=== PATIENT | male | born 1965 | race Caucasian/White ===

== ENCOUNTER 2019-06-23 12:19 | Emergency (ER) | payer OTHER, SELFPAY ==
--- NOTE | 2019-06-23 12:25 | ED.WOUNDLAC ---
HPI - Wound/Laceration General Chief Complaint: Wound/Laceration Stated Complaint: FACIAL LAC Time Seen by Provider: 06/23/19 12:26 Source: patient and RN notes reviewed History of Present Illness HPI narrative: Patient is a 53-year-old male that presents the urgent care with complaints of a laceration to the left side of the face. Patient states that happened just prior to arrival while at work. Patient states that a metal crowbar hit him on the left side of the face, under the eye. Patient denies any loss of consciousness or other injuries. Patient denies any vision change. Patient is unsure of when he had his last tetanus. No other acute complaints. No acute distress noted. Patient read the plan of care. Related Data Home Medications Medication Instructions Recorded Confirmed cetirizine [Zyrtec] 10 mg PO DAILY 06/23/19 06/23/19 clomiphene citrate 50 mg PO 06/23/19 Allergies Allergy/AdvReac Type Severity Reaction Status Date / Time Penicillins Allergy Unknown Rash Verified 12/17/17 19:34 Review of Systems Review of Systems: Narrative: CONSTITUTIONAL: Denies fever, chills, or sweats. EYES: Denies visual changes, redness, or discharge. ENT: Denies rhinorrhea, congestion, sore throat, or otalgia. CARDIOVASCULAR: Denies chest pain, palpitations, or edema. RESPIRATORY: Denies cough or dyspnea. GASTROINTESTINAL: Denies abdominal pain, nausea, vomiting, or diarrhea. GENITOURINARY: Denies dysuria or hematuria. SKIN: Reports of a puncture laceration wound to the left side of the face MUSCULOSKELETAL: Denies back pain, joint pain, or myalgia. NEUROLOGIC: Denies headache, numbness, or weakness. All other systems reviewed are negative, except as documented in HPI. PMFSH Social History Social History Gender identity (if verbalized by the patient): Male Comments At the time of my signature, I reviewed and agree with the nursing past medical, surgical, social, and family history. There is no relevant family history pertinent to the patient complaint. Exam Narrative: Exam Narrative: GENERAL: This is a well-nourished, well-developed patient, in no apparent distress. HEAD: normocephalic, atraumatic. EYES: PERRL. Sclera clear/white. Vision is grossly intact. EARS: External ears normal NOSE: External nose normal with no obvious nasal discharge THROAT: Mucous membranes moist NECK: Neck supple CARDIOVASCULAR: Regular rate and rhythm without murmurs, gallops, or rubs. RESPIRATORY: Clear to auscultation. Breath sounds equal bilaterally. No wheezes, rales, or rhonchi. SKIN: Approximately 1 cm irregular laceration to the left side of the face, below the eye. Warm, intact with no suspicious lesions or rash, good texture and turgor. NEURO: awake, alert, and oriented to person, place and time. There were no obvious focal neurologic abnormalities. EXTREMITIES: No clubbing, cyanosis, or edema. Course Vital Signs Vital signs: Vital Signs Temperature 98.9 F 06/23/19 12:36 Pulse Rate 74 06/23/19 12:36 Respiratory Rate 16 06/23/19 12:36 Blood Pressure 146/90 H 06/23/19 12:36 Pulse Oximetry 99 06/23/19 12:36 Temperature 98.9 F 06/23/19 12:36 Pulse Rate 74 06/23/19 12:36 Respiratory Rate 16 06/23/19 12:36 Blood Pressure 146/90 H 06/23/19 12:36 Pulse Oximetry 99 06/23/19 12:36 Reviewed?patient is informed that they may have pre-hypertension or hypertension based on a blood pressure reading in the department. I recommend the patient call the primary care provider listed on their discharge instructions or a physician of their choice this week to arrange follow-up for further evaluation of possible pre-hypertension or hypertension. Procedures Laceration Laceration 1: Site: face Side (If applicable): left Size (cm): 1 Description: linear and irregular Depth: simple, single layer Local Anesthetic: none Pre-repair: irrigated ====== Skin Level ======
[2019-06-23 12:36] VITALS: BP 146/90; PULSE 74; RESP 16; TEMP 37.2; O2SAT 99
[2019-06-23] MEDS: TETANUS,DIPHTHERIA,AC PERTUSSIS ADULT 0.5 ML (ADACEL) IM (12:55)
== END 2019-06-23 13:09 | disposition home or self-care (01) ==
PROVIDERS: Emergency Provider Nurse Practitioner Family; PCP Family Medicine
DX: S01.81XA Laceration without foreign body of other part of head, initial encounter (principal); W22.8XXA Striking against or struck by other objects, initial encounter; Y99.0 Civilian activity done for income or pay; Z23 Encounter for immunization
CPT/HCPCS: 12011; 90471; 90715; 99212; G0463

== ENCOUNTER 2021-10-29 03:24 | Day surgery (SDC) | payer OTHER, SELFPAY ==
[2021-10-09 11:46] VITALS: BMI 36.9
--- NOTE | 2021-10-29 08:29 | P.PNAN_ITS ---
Anes - Initial Pre Proc Eval Procedure: Operation Date: 10/29/21 10:00 Proposed Procedures p Colonoscopy - Jovon Cronin MD Date/Time: 10/29/21 08:29 Surgeon: Jovon Cronin MD Pre Op Diagnosis: positive cologuard Patient Data Age: 56 Gender: M Height: 1.85 m Weight: 127 kg Allergies Allergy/AdvReac Type Severity Reaction Status Date / Time Penicillins Allergy Unknown Rash Verified 10/29/21 08:42 Home Medications Medication Instructions Recorded Confirmed Type cetirizine 10 mg capsule (Zyrtec) 10 mg PO DAILY 06/23/19 10/29/21 History clomiphene citrate 50 mg tablet 50 mg PO EVERY OTHER DAY 06/23/19 10/29/21 History Patient hx anesthesia problems: none Family hx anesthesia problems: none Results Review: All pre-operative results and documents have been reviewed as part of the pre- operative evaluation. [facility] Past Medical History Medical History (Updated 10/29/21 @ 09:09 by Jovon Cronin MD) Asthma Hyperlipidemia Osteoarthritis Positive colorectal cancer screening using Cologuard test Social History Social History Smoking status: Never smoker Substance use type: does not use Living arrangements: alone Gender identity (if verbalized by the patient): Male Spiritual care concerns: No Anes - Eval Final PreProcedure Day of Procedure 10/29/21 08:29 Patient weight: obese Heart: regular rate and rhythm Lungs: clear to auscultation Airway: Mallampati scale class II Neurological: alert and oriented Last oral intake: >/= 8 hours ASA classification: III Emergent: no Anesthetic plan: proceed Anesthesia type and monitoring: general GIVS and standard monitoring Results Review: All pre-operative results and documents have been reviewed as part of the pre- operative evaluation. Informed Consent: The patient's anesthetic plan and its attendant risks and benefits were discussed with the patient/family/POA. Questions were solicited and answers provided to the satisfaction of the patient/family/POA.
[2021-10-29 08:43] VITALS: BP 145/98; PULSE 77; RESP 20; TEMP 36.4; O2SAT 97
[2021-10-29] MEDS: LACTATED RINGERS 1,000 ML 150 ML IV CONT (08:45)
--- NOTE | 2021-10-29 09:08 | PM.HPGS ---
History of Present Illness History of Present Illness Consent: Risks, benefits, and alternatives have been discussed and questions answered. Patient agrees to proceed with procedure. Chief complaint: positive cologuard Narrative: Colby Michaels Jr. is a 56 year old male here for first colonoscopy, had + cologuard Review of Systems Constitutional: Constitutional: Denies headache(s) and Denies weakness Eyes: Eyes: Denies blurry vision ENT: Reports Normal hearing present, Denies headache(s) and Denies neck pain Cardiovascular: Cardiovascular: Denies chest pain and Denies dyspnea Respiratory: Respiratory: Denies dyspnea Gastrointestinal: Gastrointestinal: Reports no additional gastrointestinal complaints Genitourinary: Genitourinary: Denies dysuria Musculoskeletal: Musculoskeletal: Denies neck pain Integumentary/Breasts: Skin/Breast: Denies dry skin Neurologic: Reports Normal hearing present, Denies headache(s) and Denies weakness Psychiatric: Psychiatric: Denies anxiety Endocrine: Endocrine: Denies change in body appearance Hematologic/Lymphatic: Hematologic/Lymphatic: Denies easy bleeding Allergic/Immunologic: Allergic/Immunologic: Denies urticaria PMFSH Past Medical History Medical History (Updated 10/29/21 @ 09:09 by Jovon Cronin MD) Asthma Hyperlipidemia Osteoarthritis Positive colorectal cancer screening using Cologuard test Social History Social History Smoking status: Never smoker Substance use type: does not use Living arrangements: alone Gender identity (if verbalized by the patient): Male Spiritual care concerns: No Meds Home Medications and Allergies Home Medications Medication Instructions Recorded Confirmed Type cetirizine 10 mg capsule (Zyrtec) 10 mg PO DAILY 06/23/19 10/29/21 History clomiphene citrate 50 mg tablet 50 mg PO EVERY OTHER DAY 06/23/19 10/29/21 History Allergies Allergy/AdvReac Type Severity Reaction Status Date / Time Penicillins Allergy Unknown Rash Verified 10/29/21 08:42 Vital Signs Vital Signs - 24 hr 10/29/21 08:43 Temperature 97.5 F L Pulse Rate 77 Respiratory Rate 20 Blood Pressure 145/98 H Pulse Oximetry 97 Oxygen Delivery Room Air Exam Const: General: comfortable and no acute distress HENMT: General nose exam: Normal nares present Eyes: General: appearance normal, both eyes and all related structures Neck: Neck: no JVD Resp: Auscultation: clear to auscultation bilaterally Cardio: Rate: regular rate Rhythm: regular rhythm GI: Inspection: non-distended GI Palp: Yes Soft to palpation Skin: General skin exam: normal color Neuro: General: gait normal Speech: normal speech Extrem: General: normal to inspection Psych: Mental Status: mental status grossly normal Assessment and Plan Assessment and plan (1) Positive colorectal cancer screening using Cologuard test: Code(s): R19.5 - Other fecal abnormalities Status: Acute Assessment and Plan: colonoscopy
[2021-10-29 09:28] VITALS: BP 122/85; PULSE 78; RESP 18; O2SAT 97
[2021-10-29 09:38] VITALS: BP 130/88; PULSE 71; RESP 18; O2SAT 96
[2021-10-29 09:48] VITALS: BP 115/85; PULSE 65; RESP 18; O2SAT 98
== END 2021-10-29 09:50 | disposition home or self-care (01) ==
PROVIDERS: PCP Family Medicine; Visit Provider Internal Medicine Gastroenterology
PROC: 0DJD8ZZ Inspection of Lower Intestinal Tract, Via Natural or Artificial Opening Endoscopic (ICD-10-PCS; CPT 45378; principal; 2021-10-29 10:00)
DX: R19.5 Other fecal abnormalities (principal); D12.0 Benign neoplasm of cecum; D12.3 Benign neoplasm of transverse colon; K64.8 Other hemorrhoids; K64.4 Residual hemorrhoidal skin tags; E66.9 Obesity, unspecified; Z68.36 Body mass index [BMI] 36.0-36.9, adult
CPT/HCPCS: 45385; 88305; J2704; J7120

== ENCOUNTER 2022-10-04 15:20 | Emergency (ER) | payer OTHER, SELFPAY ==
--- NOTE | ~2022-10-04 | XR_ITS ---
EXAMINATION: XR chest 2V 10/04/2022 15:45 INDICATION: Foreign body in the lung. PROCEDURE: 2 view chest COMPARISON: No prior studies for comparison. FINDINGS: The lungs are clear. The cardiomediastinal silhouette is within normal limits. There are no pleural effusions. There is no pneumothorax suspected. No foreign body identified. IMPRESSION: 1: NO ACUTE CARDIOPULMONARY DISEASE. Reviewed, dictated and finalized at location []
--- NOTE | ~2022-10-04 | CT_ITS ---
EXAMINATION: CT diagnostic chest w con DATE: 10/04/2022 17:43 INDICATION: Concern for aspiration, cough TECHNIQUE: Computed tomography (CT) of the chest was performed with 100 mL Omnipaque-350 intravenous contrast. Automated exposure control and iterative reconstruction technique were employed. The dose-l ength product was 669.08 mGy-cm. COMPARISON: X-ray chest, same date. FINDINGS: CHEST: Thoracic aorta: No significant calcification. Ascending aortic ectasia. Lung parenchyma and airways: 7 mm right lower lobe pulmonary nodule. 2 mm nodules along a right lower lobe fissure and peripherally in the posterior right upper lobe, possibly representing granulomas or pulmonary lymph nodes noting this determination is not definitive. Calcified peripheral right upper lobe punctate granuloma. Lungs otherwise clear. Airways are clear. Thoracic inlet, axillae and chest wall: No thyroid or soft tissue mass. No axillary lymphadenopathy. Mediastinum: No mass or lymphadenopathy. Heart and pericardium: Normal heart size. No pericardial effusion. Coronary artery calcifications: Absent. Pleura: No effusion or mass. Upper abdomen: Diffuse fatty infiltration of the liver. Thoracic bones: No acute osseous finding in the chest. IMPRESSION: 1. No acute thoracic process detected, specifically there is no evidence of airway debris or aspirati on. 2. Multiple pulmonary nodules, the largest measures 7 mm in the right lower lobe, recommend follow-up low-dose noncontrast chest CT in 6 months. 3. Hepatic steatosis. Reviewed, dictated and finalized at location [facility]. IMPRESSION: 1. No acute thoracic process detected, specifically there is no evidence of air way debris or aspiration. 2. Multiple pulmonary nodules, the largest measures 7 mm in the right lower lob e, recommend follow-up low-dose noncontrast chest CT in 6 months. 3. Hepatic steatosis.
[2022-10-04 15:30] VITALS: BP 160/94; PULSE 73; RESP 16; TEMP 36.4; O2SAT 98
--- NOTE | 2022-10-04 15:41 | PC.NURSE ---
Pt taken to radiology
[2022-10-04 16:23] LABS: Basophils Absolute Auto 0.1 K/mm3 (0.0-0.1); Eosinophils Absolute Auto 0.2 K/mm3 (0-0.3); Eosinophils Percent Auto 4.6 % (0-4.4); Hematocrit 43.8 % (42.0-52.0); Immature Granulocyte Absolute 0.02 K/mm3 (0.00-0.031); Immature Granulocyte Percent A 0.4 % (0-0.5); Lymphocytes Absolute Auto 1.53 K/mm3 (0.9-3.2); Lymphocytes Percent Auto 29.1 % (18.3-44.2); Mean Corpuscular HGB Conc 34.2 g/dl (32-36); Mean Corpuscular Hemoglobin 31.1 pg (26-34); Mean Corpuscular Volume 90.7 fl (80-100); Mean Platelet Volume 9.8 fl (7.4-10.4); Monocytes Absolute Auto 0.5 K/mm3 (0.1-0.6); Monocytes Percent Auto 8.6 % (2.6-8.5); Neutrophils Percent Auto 56.3 % (45.5-73.1); Platelet Count Result 164 k/mm3 (150-375); Red Blood Count 4.83 M/mm3 (4.6-6.20); Red Cell Distribution Width 13.3 % (11.5-14.5); White Blood Count 5.3 K/mm3 (4.5-10.0)
[2022-10-04 16:40] LABS: Alanine Aminotransferase 48 U/L (6-50); Albumin Level 4.3 g/dL (3.5-5.1); Alkaline Phosphatase 64 U/L (38-126); Anion Gap 6 mmol/L (8-16); Aspartate Amino Transferase 48 U/L (17-59); Bilirubin,Total 0.5 mg/dL (0.2-1.3); Blood Urea Nitrogen 21 mg/dL (9-20); Calcium 8.5 mg/dL (8.4-10.2); Carbon Dioxide 27 mmol/L (22-30); Chloride 108 mmol/L (98-107); Estimated CRCL calculation 101 ml/min; Estimated Glomerular Filt Rate > 60; Glucose 87 mg/dL (65-110); Potassium 3.6 mmol/L (3.4-5.0); Sodium 141 mmol/L (137-145)
--- NOTE | 2022-10-04 18:08 | ED.GENADULT ---
HPI - General Adult General Chief complaint: Unspecified Stated complaint: FB IN LUNG Time Seen by Provider: 10/04/22 15:53 History of Present Illness HPI narrative: 57-year-old male presented to the emergency department for evaluation of suspected aspiration. Patient states on Friday he was eating a piece of pizza and inhaled a small piece of hamburger meat. Patient states on Friday through Friday he had a lot of coughing and that his symptoms have begun to improve but he does still have some cough and sore throat. Related Data Home Medications Medication Instructions Recorded Confirmed cetirizine 10 mg capsule (Zyrtec) 10 mg PO DAILY 06/23/19 10/29/21 clomiphene citrate 50 mg tablet 50 mg PO EVERY OTHER DAY 06/23/19 10/29/21 Allergies Allergy/AdvReac Type Severity Reaction Status Date / Time Penicillins Allergy Unknown Rash Verified 10/29/21 08:42 Review of Systems Review of Systems: All systems reviewed & are unremarkable except as noted in HPI and below PMFSH Past Medical History Medical History (Updated 10/04/22 @ 18:08 by Masoud Che MD) Asthma Hyperlipidemia Osteoarthritis Positive colorectal cancer screening using Cologuard test Social History Social History Smoking status: Never smoker Substance use type: does not use Living arrangements: alone Gender identity (if verbalized by the patient): Male Spiritual care concerns: No Exam Narrative: APPEARANCE: Well appearing, no pain, no distress, well-nourished. HEAD: normocephalic, atraumatic. EYES: PERRLA/EOMI, conjunctivae clear. NOSE: Normal no drainage NECK: Supple. No adenopathy, no masses. RESPIRATORY: Airway patent, respirations nonlabored. Clear to auscultation bilaterally, no rales, rhonchi, wheezing. CARDIOVASCULAR: Regular rate and rhythm without murmurs rubs or gallops. ABDOMINAL: Soft, nontender, nondistended, normal bowel sounds MUSCULOSKELETAL: Moves all extremities. Strength/ROM intact, No edema, No calf tenderness. NEURO: Alert. Cranial nerves II through XII intact. Grossly intact SKIN: Warm, dry. Normal Color Course Course Emergency Course: 57-year-old male presented ED for evaluation of possible aspiration. Chest x-ray showed no acute cardiopulmonary normality. CT chest with contrast showed no evidence of aspiration or airway debris. Case was discussed with pulmonology and they were comfortable with the pain-patient having close follow-up. They recommended starting the patient on albuterol rescue inhaler and antibiotic. Patient was updated on the results of his CT scan including on the pulmonary nodules. Patient states he does have follow-up scheduled with his primary care physician on Friday. Vital Signs Vital signs: Vital Signs Temperature 97.6 F 10/04/22 15:30 Pulse Rate 73 10/04/22 15:30 Respiratory Rate 16 10/04/22 15:30 Blood Pressure 160/94 H 10/04/22 15:30 Pulse Oximetry 98 10/04/22 15:30 Oxygen Delivery Room Air 10/04/22 15:30 Temperature 97.6 F 10/04/22 15:30 Pulse Rate 73 10/04/22 15:30 Respiratory Rate 16 10/04/22 15:30 Blood Pressure 160/94 H 10/04/22 15:30 Pulse Oximetry 98 10/04/22 15:30 Oxygen Delivery Room Air 10/04/22 15:30 Medical Decision Making Differential Diagnosis Differential Diagnosis: Pneumonia, pneumonitis, aspiration pneumonia, mucous plug Vital Signs Vital Signs: Vital Signs Temperature 97.6 F 10/04/22 15:30 Pulse Rate 73 10/04/22 15:30 Respiratory Rate 16 10/04/22 15:30 Blood Pressure 160/94 H 10/04/22 15:30 Pulse Oximetry 98 10/04/22 15:30 Oxygen Delivery Room Air 10/04/22 15:30 Temperature 97.6 F 10/04/22 15:30 Pulse Rate 73 10/04/22 15:30 Respiratory Rate 16 10/04/22 15:30 Blood Pressure 160/94 H 10/04/22 15:30 Pulse Oximetry 98 10/04/22 15:30 Oxygen Delivery Room Air 10/04/22 15:30 Lab Data Lab results reviewed: Yes I reviewed the patient's lab results.
== END 2022-10-04 18:21 | disposition home or self-care (01) ==
PROVIDERS: Emergency Provider Emergency Medicine; PCP Family Medicine
DX: T17.928A Food in respiratory tract, part unspecified causing other injury, initial encounter (principal); J45.909 Unspecified asthma, uncomplicated; E78.5 Hyperlipidemia, unspecified; M19.90 Unspecified osteoarthritis, unspecified site; K76.0 Fatty (change of) liver, not elsewhere classified; R91.8 Other nonspecific abnormal finding of lung field
CPT/HCPCS: 36415; 71046; 71260; 80053; 85025; 99284; Q9967